=== PATIENT | male | born 1950 | race Caucasian/White ===

== ENCOUNTER 2019-02-05 08:19 | Emergency (ER) | payer MEDICARE, OTHER ==
[~2019-02-05 08:19] MED LIST: Sodium Chloride Irrig Solution 250 ML BOT ONE
[2019-02-05] MEDS ORDERED: Lidocaine 2% w/Epinephrine 1:200K 20 ML VIAL ONE (08:31)
[2019-02-05] MEDS ORDERED: Adacel (T-DAP) 0.5 ML SYRINGE ONE (08:59)
== END 2019-02-05 09:14 | disposition home or self-care (01) ==
LOC: MADERS 08:19
DX: S51.812A Laceration without foreign body of left forearm, initial encounter (principal); E11.9 Type 2 diabetes mellitus without complications; I10 Essential (primary) hypertension; E87.1 Hypo-osmolality and hyponatremia; E66.9 Obesity, unspecified; W01.0XXA Fall on same level from slipping, tripping and stumbling without subsequent striking against object, initial encounter
CPT/HCPCS: 12002; 90715